=== PATIENT | male | born 1945 | race African-American/Black ===

== ENCOUNTER 2021-11-11 16:15 | Inpatient (IN) | payer OTHER, MEDICAID ==
[2021-11-11] MEDS ORDERED: Acetaminophen 325 MG TAB PO PRN (16:24)
[2021-11-11] MEDS ORDERED: Acetaminophen 650 MG/20.3 ML UDCUP PO PRN (16:28)
[2021-11-11] MEDS ORDERED: hydrALAZINE 20 MG/ML VIAL SLOW IVP PRN (16:29)
[2021-11-11] MEDS ORDERED: Polyethylene Glycol 3350 17 GM Packet PO PRN (16:49)
[2021-11-11] MEDS: methylPREDNISolone Sod Succ 40 MG VIAL IVP SCH ×2 (16:50→23:33)
[2021-11-11] MEDS: Calcium Carbonate 600 MG + Vit D TAB PO SCH (16:50)
[2021-11-11] MEDS: Senokot S 8.6-50 MG TAB PO SCH ×2 (20:13→20:48)
[2021-11-11] MEDS: Folic Acid 1 MG TAB PO SCH ×2 (20:13→20:48)
[2021-11-11] MEDS: Lisinopril 5 MG TAB PO SCH (20:13)
[2021-11-11] MEDS: Cyanocobalamin (Vitamin B-12) 1,000 MCG TAB PO SCH ×2 (20:13→20:48)
[2021-11-11] MEDS: guaiFENesin ER 600 MG TAB PO SCH (20:13)
[2021-11-11] MEDS: pyridOXINE 50 MG (B6) TAB PO SCH ×2 (20:24→20:48)
[2021-11-11] MEDS ORDERED: Famotidine/PF 20 mg/2ml Vial SLOW IVP SCH (21:00)
[2021-11-11] MEDS: Mometasone/Formoterol 200/5 60 PUFF INH SCH (21:30)
[2021-11-12 04:52] LABS: Anion Gap 13 mmol/L (10-20); BUN (Urea Nitrogen) 21 mg/dL (8.4-25.7); Calc. Creatinine Clearance 42 mL/min (70-130); Calcium 9.2 mg/dL (7.8-10.44); Carbon Dioxide 28 mmol/L (23-31); Chloride 104 mmol/L (98-107); Estimated GFR 63; Glucose 164 mg/dL (83-110); Magnesium 1.8 mg/dL (1.6-2.6); Phosphorus 2.6 mg/dL (2.3-4.7); Potassium 4.5 mmol/L (3.5-5.1); Sodium 140 mmol/L (136-145)
[2021-11-12 04:55] LABS: Platelet Count 132 10x3/uL (150-450)
[2021-11-12 04:56] LABS: #Monocytes 0.1 10x3/uL (0.0-1.1); #Neutrophils 4.7 10x3/uL (1.5-8.4); %Lymphocytes 10.6 % (18.0-47.0); %Monocytes 0.9 % (0.0-10.0); %Neutrophils 88.1 % (40.0-75.0); Hemoglobin 16.1 g/dL (13.5-17.5); Mean Corpuscular HGB CONC 32.7 g/dL (32.0-36.0); Mean Corpuscular Hemoglobin 30.6 pg (27.0-33.0); Mean Corpuscular Volume 93.7 fl (81.2-95.1); Mean Platelet Volume 10.3 fl (7.4-10.4); Red Blood Cell (RBC) Count 5.26 10x6/uL (4.32-5.72); White Blood Cell (WBC) Count 5.4 10x3/uL (3.5-10.5)
[2021-11-12] MEDS: methylPREDNISolone Sod Succ 40 MG VIAL IVP SCH ×3 (05:32→21:22)
[2021-11-12] MEDS: Calcium Carbonate 600 MG + Vit D TAB PO SCH ×2 (08:14→17:08)
[2021-11-12] MEDS ORDERED: Electrolyte Replacement Protocol 1 EACH FS SCH (08:15)
[2021-11-12] MEDS: Enoxaparin Sodium 40 MG/0.4 ML SYRINGE SC SCH (08:15)
[2021-11-12] MEDS: Multivit, Therapeutic 1 TAB PO SCH (08:15)
[2021-11-12] MEDS: Lisinopril 5 MG TAB PO SCH ×2 (08:15→21:24)
[2021-11-12] MEDS: guaiFENesin ER 600 MG TAB PO SCH ×2 (08:15→21:23)
[2021-11-12] MEDS ORDERED: Magnesium 2 GM/50 ML(in water) 2 GM in Premix Bag 1 BAG IVPB SCH (14:00)
[2021-11-12] MEDS: Mometasone/Formoterol 200/5 60 PUFF INH SCH (18:30)
[2021-11-12] MEDS: Senokot S 8.6-50 MG TAB PO SCH (21:00)
[2021-11-12] MEDS: Latanoprost 0.005% Ophth Soln 2.5 ml Bottle EA EYE SCH (21:20)
[2021-11-12] MEDS: Dorzolamide HCl 2% Ophth Soln 10 ml Bottle L EYE SCH (21:22)
[2021-11-12] MEDS: pyridOXINE 50 MG (B6) TAB PO SCH (21:23)
[2021-11-12] MEDS: Folic Acid 1 MG TAB PO SCH (21:23)
[2021-11-12] MEDS: Cyanocobalamin (Vitamin B-12) 1,000 MCG TAB PO SCH (21:23)
[2021-11-12] MEDS: Timolol 0.5% Ophth Soln 5 ml Bottle L EYE SCH (21:30)
[2021-11-13 05:37] LABS: #Monocytes 0.4 10x3/uL (0.0-1.1); #Neutrophils 12.2 10x3/uL (1.5-8.4); %Basophils 0.1 % (0.0-2.0); %Lymphocytes 4.3 % (18.0-47.0); %Neutrophils 92.3 % (40.0-75.0); Hemoglobin 15.6 g/dL (13.5-17.5); Mean Corpuscular HGB CONC 33.3 g/dL (32.0-36.0); Mean Corpuscular Hemoglobin 30.3 pg (27.0-33.0); Mean Corpuscular Volume 91.1 fl (81.2-95.1); Mean Platelet Volume 10.7 fl (7.4-10.4); Platelet Count 142 10x3/uL (150-450); RBC Distribution Width 13.8 % (11.5-14.5); Red Blood Cell (RBC) Count 5.15 10x6/uL (4.32-5.72); White Blood Cell (WBC) Count 13.2 10x3/uL (3.5-10.5)
[2021-11-13] MEDS: methylPREDNISolone Sod Succ 40 MG VIAL IVP SCH ×3 (05:42→20:21)
[2021-11-13 05:58] LABS: Anion Gap 13 mmol/L (10-20); BUN (Urea Nitrogen) 22 mg/dL (8.4-25.7); Calc. Creatinine Clearance 50 mL/min (70-130); Calcium 9.3 mg/dL (7.8-10.44); Carbon Dioxide 24 mmol/L (23-31); Chloride 106 mmol/L (98-107); Estimated GFR 77; Glucose 133 mg/dL (83-110); Magnesium 2.1 mg/dL (1.6-2.6); Potassium 4.3 mmol/L (3.5-5.1); Sodium 139 mmol/L (136-145)
[2021-11-13] MEDS: Dorzolamide HCl 2% Ophth Soln 10 ml Bottle L EYE SCH ×2 (09:04→21:30)
[2021-11-13] MEDS: Timolol 0.5% Ophth Soln 5 ml Bottle L EYE SCH ×2 (09:04→21:45)
[2021-11-13] MEDS: Lisinopril 5 MG TAB PO SCH ×2 (09:05→20:21)
[2021-11-13] MEDS: Calcium Carbonate 600 MG + Vit D TAB PO SCH ×2 (09:05→16:17)
[2021-11-13] MEDS: Multivit, Therapeutic 1 TAB PO SCH (09:05)
[2021-11-13] MEDS: guaiFENesin ER 600 MG TAB PO SCH ×2 (09:05→20:21)
[2021-11-13] MEDS: Enoxaparin Sodium 40 MG/0.4 ML SYRINGE SC SCH (09:05)
[2021-11-13] MEDS: Amlodipine 10 MG TAB PO SCH (09:05)
[2021-11-13] MEDS: Tamsulosin HCl 0.4 MG CAP PO SCH (20:20)
[2021-11-13] MEDS: Folic Acid 1 MG TAB PO SCH (20:20)
[2021-11-13] MEDS: Cyanocobalamin (Vitamin B-12) 1,000 MCG TAB PO SCH (20:21)
[2021-11-13] MEDS: pyridOXINE 50 MG (B6) TAB PO SCH (20:21)
[2021-11-13] MEDS: Latanoprost 0.005% Ophth Soln 2.5 ml Bottle EA EYE SCH (21:40)
[2021-11-14 05:06] VITALS: BMI 19.1
[2021-11-14] MEDS: Senokot S 8.6-50 MG TAB PO SCH ×2 (05:17→20:45)
[2021-11-14] MEDS: methylPREDNISolone Sod Succ 40 MG VIAL IVP SCH (06:05)
[2021-11-14] MEDS: Calcium Carbonate 600 MG + Vit D TAB PO SCH ×2 (09:50→19:27)
[2021-11-14] MEDS: Multivit, Therapeutic 1 TAB PO SCH (09:50)
[2021-11-14] MEDS: Amlodipine 10 MG TAB PO SCH (09:51)
[2021-11-14] MEDS: Lisinopril 5 MG TAB PO SCH ×2 (09:51→20:44)
[2021-11-14] MEDS: Enoxaparin Sodium 40 MG/0.4 ML SYRINGE SC SCH (09:51)
[2021-11-14] MEDS: guaiFENesin ER 600 MG TAB PO SCH ×2 (09:51→21:38)
[2021-11-14] MEDS: Dorzolamide HCl 2% Ophth Soln 10 ml Bottle L EYE SCH ×2 (09:56→21:38)
[2021-11-14] MEDS: Timolol 0.5% Ophth Soln 5 ml Bottle L EYE SCH ×2 (10:50→21:40)
[2021-11-14] MEDS: predniSONE 20 MG TAB PO SCH (19:27)
[2021-11-14] MEDS: pyridOXINE 50 MG (B6) TAB PO SCH (20:44)
[2021-11-14] MEDS: Tamsulosin HCl 0.4 MG CAP PO SCH (20:44)
[2021-11-14] MEDS: Cyanocobalamin (Vitamin B-12) 1,000 MCG TAB PO SCH (20:45)
[2021-11-14] MEDS: Folic Acid 1 MG TAB PO SCH (20:45)
[2021-11-14] MEDS: Latanoprost 0.005% Ophth Soln 2.5 ml Bottle EA EYE SCH (21:39)
[2021-11-15] MEDS: Multivit, Therapeutic 1 TAB PO SCH (08:48)
[2021-11-15] MEDS: Calcium Carbonate 600 MG + Vit D TAB PO SCH (08:48)
[2021-11-15] MEDS: Amlodipine 10 MG TAB PO SCH (08:48)
[2021-11-15] MEDS: Enoxaparin Sodium 40 MG/0.4 ML SYRINGE SC SCH (08:48)
[2021-11-15] MEDS: Lisinopril 5 MG TAB PO SCH (08:49)
[2021-11-15] MEDS: guaiFENesin ER 600 MG TAB PO SCH (08:49)
[2021-11-15] MEDS: predniSONE 20 MG TAB PO SCH (08:49)
[2021-11-15 12:09] VITALS: BP 138/76; TEMP 98.4
[2021-11-15] MEDS: Timolol 0.5% Ophth Soln 5 ml Bottle L EYE SCH (12:37)
[2021-11-15] MEDS: Dorzolamide HCl 2% Ophth Soln 10 ml Bottle L EYE SCH (12:37)
== END 2021-11-15 13:10 | disposition home or self-care (01) | DRG 189 ==
LOC: CSHICU 16:15 → CSHTELE 11-12 13:42
PROVIDERS: ADMIT Internal Medicine; ATTEND Internal Medicine
PROC: 5A09357 Assistance with Respiratory Ventilation, Less than 24 Consecutive Hours, Continuous Positive Airway Pressure (ICD-10-PCS; principal; 2021-11-11)
DX: J96.01 Acute respiratory failure with hypoxia (principal); J44.1 Chronic obstructive pulmonary disease with (acute) exacerbation; I50.32 Chronic diastolic (congestive) heart failure; I13.0 Hypertensive heart and chronic kidney disease with heart failure and stage 1 through stage 4 chronic kidney disease, or unspecified chronic kidney disease; E87.2 Acidosis; J96.02 Acute respiratory failure with hypercapnia; H40.9 Unspecified glaucoma; N18.2 Chronic kidney disease, stage 2 (mild); I16.0 Hypertensive urgency; Z79.899 Other long term (current) drug therapy
CPT/HCPCS: 36415; 80048; 82565; 83735; 84100; 85025; 94660; 94760; J0360; J1650; J1956; J2920; J3475; J7512; J7620